=== PATIENT | female | born 2000 | race Caucasian/White ===

== ENCOUNTER → 2024-06-20 | Outpatient (CLI) | payer BC ==
[~2024-06-20] MED LIST: CODACEE120 PO; IBUP400 PO; IBUP600 PO
[2024-06-25 01:00] LABS: HSV 1 SUBTYPE BY PCR Not Detected; HSV 2 SUBTYPE BY PCR Not Detected; HSV SUBTYPE SOURCE VAGINAL
== END ==
LOC: LAB SHORT 18:59 → LAB 18:59
PROVIDERS: Emergency Medicine
DX: N89.8 Other specified noninflammatory disorders of vagina (principal)
CPT/HCPCS: 87529